=== PATIENT | male | born 1945 | race Caucasian/White ===

== ENCOUNTER → 2016-05-13 | Outpatient (CLI) | payer OTHER ==
[~2016-05-13] MED LIST: ASPEC81 PO; CALC500C70 PO; IMD/2 PO; OMEG10007 PO; PRLSR20 PO; SIMV20TA2 PO
--- NOTE | 2016-05-13 11:14 | DIAGNOSTIC IMAGING REPORT ---
(BARIUM SWALLOW) ESOPHAGUS CLINICAL HISTORY: Hiatal hernia, reflux symptomatology. COMPARISON STUDY: None FLUOROSCOPY TIME: 48 seconds. FINDINGS: The patient swallowed effervescent granules and barium without difficulty. Swallowing mechanics appear normal. No aspiration was visualized. No esophageal masses or ulcerations were identified. There is a moderate sliding hiatal hernia. There was gastroesophageal reflux. The patient was administered 1/2 inch barium tablet. This freely passed into the stomach. IMPRESSION: Moderate sliding hiatal hernia. Gastroesophageal reflux. Electronically signed by: Damien Collier M.D. 05/13/2016 11:13 AM Dictated Date/Time: 05/13/2016 11:11 AM
== END | disposition home or self-care (01) ==
LOC: C.RAD 10:10
PROVIDERS: ATTEND Nurse Practitioner Family
DX: Z01.818 Encounter for other preprocedural examination (principal); K21.9 Gastro-esophageal reflux disease without esophagitis; K44.9 Diaphragmatic hernia without obstruction or gangrene

== ENCOUNTER → 2016-05-30 | Outpatient (CLI) | payer OTHER | END | disposition home or self-care (01) | LOC: C.LABPVFM 10:05 | PROVIDERS: ATTEND Urology | DX: N40.1 Benign prostatic hyperplasia with lower urinary tract symptoms (principal) ==

== ENCOUNTER → 2016-09-23 | Outpatient (CLI) | payer OTHER ==
[2016-09-23 13:35] LABS: BASO % 0.7 %; BASO ABS # 0.04 K/uL (0-0.2); COMPLETE YES; HEMATOCRIT 45.2 % (42-52); IG% 0.5 %; LYMPH % 36.1 %; MEAN CELL VOLUME 92.6 fL (80-100); MEAN CORPUSCULAR HEMOGLOBIN 31.1 pg (25-34); MEAN CORPUSCULAR HGB CONC 33.6 g/dl (32-36); MONO % 11.2 %; NEUT % 47.5 %; PLATELET COUNT 268 K/uL (130-400); RED BLOOD COUNT 4.88 M/uL (4.7-6.1); WHITE BLOOD COUNT 5.81 K/uL (4.8-10.8)
[2016-09-23 13:47] LABS: ALT/SGPT 34 U/L (12-78); BLOOD UREA NITROGEN 19 mg/dl (7-18); BUN/CREATININE RATIO 16.2 (10-20); CARBON DIOXIDE 24 mmol/L (21-32); CHLORIDE 107 mmol/L (98-107); CHOLESTEROL 165 mg/dl (0-200); GLUCOSE 99 mg/dl (70-99); POTASSIUM 4.6 mmol/L (3.5-5.1); SODIUM 141 mmol/L (136-145); TRIGLYCERIDES 138 mg/dl (0-150); VERY LOW DENSITY LIPOPROT CALC 28 mg/dl
[2016-09-23 13:50] LABS: ALB/GLOB RATIO 1.1 (0.9-2); ALKALINE PHOSPHATASE 60 U/L (45-117); AST/SGOT 20 U/L (15-37); CHOLESTEROL/HDL RATIO 3.3; HDL CHOLESTEROL 50 mg/dl; LDL CHOLESTEROL CALCULATED 87 mg/dl
[2016-09-23 14:50] LABS: CALCIUM 8.9 mg/dl (8.5-10.1)
== END | disposition home or self-care (01) ==
LOC: C.LABPVFM 08:19
PROVIDERS: ATTEND Family Medicine
DX: E78.5 Hyperlipidemia, unspecified (principal); R06.09 Other forms of dyspnea; K22.2 Esophageal obstruction; D64.9 Anemia, unspecified

== ENCOUNTER → 2016-10-15 | Outpatient (CLI) | payer OTHER | END | disposition home or self-care (01) | LOC: C.LABPVFM 11:39 | PROVIDERS: ATTEND Nurse Practitioner Family | DX: J02.9 Acute pharyngitis, unspecified (principal) ==

== ENCOUNTER → 2017-04-03 | Outpatient (CLI) | payer OTHER ==
[2017-04-03 13:13] LABS: ALT/SGPT 44 U/L (12-78); BLOOD UREA NITROGEN 17 mg/dl (7-18); BUN/CREATININE RATIO 14.1 (10-20); CALCIUM 8.5 mg/dl (8.5-10.1); CARBON DIOXIDE 26 mmol/L (21-32); CHLORIDE 106 mmol/L (98-107); CHOLESTEROL 162 mg/dl (0-200); GLUCOSE 101 mg/dl (70-99); POTASSIUM 4.3 mmol/L (3.5-5.1); SODIUM 137 mmol/L (136-145)
[2017-04-03 13:16] LABS: ALB/GLOB RATIO 1.3 (0.9-2); ALKALINE PHOSPHATASE 57 U/L (45-117); AST/SGOT 26 U/L (15-37); CHOLESTEROL/HDL RATIO 3.3; HDL CHOLESTEROL 49 mg/dl; LDL CHOLESTEROL CALCULATED 71 mg/dl; TRIGLYCERIDES 211 mg/dl (0-150); VERY LOW DENSITY LIPOPROT CALC 42 mg/dl
== END | disposition home or self-care (01) ==
LOC: C.LABPVFM 07:44
PROVIDERS: ATTEND Family Medicine
DX: E78.5 Hyperlipidemia, unspecified (principal); M19.90 Unspecified osteoarthritis, unspecified site; D64.9 Anemia, unspecified; N40.1 Benign prostatic hyperplasia with lower urinary tract symptoms; Z85.828 Personal history of other malignant neoplasm of skin

== ENCOUNTER → 2017-07-04 | Outpatient (CLI) | payer OTHER | END | disposition home or self-care (01) | LOC: C.LAB1850 10:16 | PROVIDERS: ATTEND Urology | DX: N40.1 Benign prostatic hyperplasia with lower urinary tract symptoms (principal) ==

== ENCOUNTER 2019-10-29 10:22 | Observation (INO) ==
--- NOTE | 2019-10-03 14:38 | PAT Medication Instructions ---
Medication Instructions Date of Service October 03, 2019 Home Medications Medication Instructions Recorded tamsulosin 0.4 mg capsule 0.4 mg PO HS #90 cap 04/22/19 cholecalciferol (vitamin D3) 25 mcg (1,000 unit) capsule 1,000 - 2,000 units PO QAM loperamide 2 mg tablet 1 mg PO BID meloxicam 15 mg tablet 15 mg PO DIRECTED PRN omega 9-lnv-lvu-fish oil 1,000 mg (120 mg-180 mg) capsule 1 cap PO QAM tamsulosin 0.4 mg capsule 0.4 mg PO HS simvastatin 10 mg PO PM methylcellulose (laxative) 500 mg tablet 500 mg PO BID aspirin [Aspir-81] 81 mg PO QAM calcium carbonate [Calcium 600] 1,200 mg PO DAILY ibuprofen 400 mg PO UD PRN naproxen sodium [Aleve] 220 mg PO UD PRN ASK your surgeon for instructions meloxicam 15 mg tablet 15 mg PO DIRECTED PRN ibuprofen 400 mg PO UD PRN STOP taking 2 weeks before surgery (or as soon as possible if surgery is within 2 weeks) omega 8-fhe-tno-fish oil 1,000 mg (120 mg-180 mg) capsule 1 cap PO QAM DO NOT take the morning of surgery cholecalciferol (vitamin D3) 25 mcg (1,000 unit) capsule 1,000 - 2,000 units PO QAM loperamide 2 mg tablet 1 mg PO BID methylcellulose (laxative) 500 mg tablet 500 mg PO BID calcium carbonate [Calcium 600] 1,200 mg PO DAILY Take evening before surgery loperamide 2 mg tablet 1 mg PO BID tamsulosin 0.4 mg capsule 0.4 mg PO HS simvastatin 10 mg PO PM methylcellulose (laxative) 500 mg tablet 500 mg PO BID Other Notes If you have any questions please call us at [phone] or [phone] or [phone] or [phone]
--- NOTE | 2019-10-08 09:17 | Anesthesiology Consultation ---
Date of Service October 08, 2019 Assessment & Plan (1) Encounter for pre-operative examination: Per PAT assessment on 10/07: Travel screen- Lives in [facility]. Travel to [facility] for grocery shopping/doctor appts. Wears mask in public. No known COVID-19 positive contacts. No current COVID-19 related symptoms. No hx of COVID-19 testing. Patient scheduled for preop COVID testing (at [place]) on 10/23. Awaiting results. Chart Review Chart Review: Acceptable Risk for Surgery (pending COVID testing) and Patient seen in Pre Admission Testing Teaching & Discussion Pre-Anesthesia Teaching/Discussion Notes: Instructed NPO after midnight before surgery,except medications with 15 cc of water. Medication instructions provided according to the PAT guidelines. History Surgery Operation Date: 10/29/19 07:00 Proposed Procedures p Left Total Knee Arthroplasty - Paddy Sim MD Height/Weight Height: 5 ft 9 in Weight: 72.1 kg Allergies Allergy/AdvReac Type Severity Reaction Status Date / Time BANDAIDS Allergy Unknown ? RASH Uncoded 10/06/19 15:20 Medications Home Medications Medication Instructions Recorded Confirmed Last Taken cholecalciferol (vitamin D3) 25 1,000 - 2,000 units PO QAM cap 10/12/1809/05/19 mcg (1,000 unit) capsule loperamide 2 mg tablet 1 mg PO BID tab 10/12/18 10/01/19 09/05/19 meloxicam 15 mg tablet 15 mg PO DIRECTED PRN #30 tab 10/12/18 10/01/19 Unknown omega 3-bim-vbg-fish oil 1,000 mg 1 cap PO QAM 10/12/18 10/01/19 09/05/19 (120 mg-180 mg) capsule tamsulosin 0.4 mg capsule 0.4 mg PO HS #90 cap 04/22/19 10/01/19 09/05/19 simvastatin 10 mg PO PM 09/06/19 10/01/19 09/05/19 methylcellulose (laxative) 500 mg 500 mg PO BID 09/30/19 10/01/19 Unknown tablet aspirin [Aspir-81] 81 mg PO QAM 10/01/19 10/01/19 Unknown calcium carbonate [Calcium 600] 1,200 mg PO DAILY 10/01/19 10/01/19 Unknown ibuprofen 400 mg PO UD PRN 10/01/19 10/01/19 Unknown naproxen sodium [Aleve] 220 mg PO UD PRN 10/01/19 10/01/19 Unknown Past Medical History Medical History 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[facility] 08/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- dx anaplasmosis, tx with doxy, no current symptoms Borderline high cholesterol Degenerative arthritis of knee, bilateral Enlarged prostate History of hiatal hernia History of squamous cell carcinoma of skin (Resolved) s/p excision IBS (irritable bowel syndrome) Exercise / Class Metabolic Activity II 4-5 Yardwork/Stairs/Walk up hill Past Family History Family History Mother Breast cancer Hypertension Father Diabetes Denies family history of Ovarian cancer Prostate cancer Myocardial infarction Colorectal cancer Past Surgical History Surgical History History of arthroscopy of right knee History of colonoscopy History of hemorrhoidectomy History of hernia repair History of repair of hiatal hernia History of tooth extraction ALL TEETH REMOVED Past Anesthesia History No Hx of Anesthesia Complications and No Family Hx of Anesthesia Complications History of PONV No Hx of PONV and No Hx of Motion Sickness Social History Smoking Status: Never smoker Do You Dip or Chew Tobacco: No Hx Alcohol Use: Yes Alcohol type: beer, wine and hard liquor alcohol intake frequency: a few times a week Hx Substance Use: No substance use type: does not use Review of Systems Patient denies chest pain, shortness of breath, dyspnea on exertion, fever, chills, cough, wheezing, palpitations. Physical Exam Vital Signs VITALS BP 135/75 P 63 TEMP 98.7 SP02 98%RA RESP 18 PHYSICAL Full neck and c-spine range of motion. Full TMJ range of motion. TMD 3 finger breaths Mallampati Score 3 Dentition: full dentures upper/lower Lungs: clear throughout to auscultation Cardiac: regular rate and rhythm, no murmurs noted Spine: normal Carotid arteries: negative bruit Extremities: no edema Testing Laboratory Results 10/08/19 09:40 PT 10.1 Seconds (9.0-12.0) 10/08/19 09:40 INR 1.0 (0.9-1.1) 10/08/19 09:40 APTT 26.2 Seconds (21.0-31.0) 10/08/19 09:40 Blood Type A Positive 10/08/19 09:40 Antibody Screen NEGATIVE 10/08/19 09:40 09/06/19 SODIUM 135 POTASSIUM 3.8 CHLORIDE 100 CO2 24 BUN 22 CREATININE 1.35 GLUCOSE 100 Electrocardiogram Date: 09/06/19 NSR with sinus arrhythmia at 81bpm. NS STA. Chest X-Ray Date: 09/06/19 Atherosclerosis of the aortic arch. Cardiac silhouette enlarged. No focal opacity. No large effusion or pneumothorax. Osseous structures normal. Upper abdomen normal. IMPRESSION: No acute cardiopulmonary disease.
[2019-10-08 11:15] LABS: Hematocrit (blood only) 42.6 % (42-52); Hemoglobin 14.3 g/dL (14.0-18.0); Mean Corpuscular Hemoglobin 31.1 pg (25-34); Mean Corpuscular Hgb Conc 33.6 g/dL (32-36); Mean Corpuscular Volume 92.6 fL (80-100); Mean Platelet Volume 9.4 fL (7.4-10.4); Platelet Count 204 K/uL (130-400); RDW Coefficient of Variation 13.4 % (11.5-14.5); RDW Standard Deviation 45.2 fL (36.4-46.3); White Blood Count 7.46 K/uL (4.8-10.8)
[2019-10-08 11:26] LABS: Partial Thromboplastin Ratio 0.9; Partial Thromboplastin Time 26.2 Seconds (21.0-31.0); Prothrombin Time 10.1 Seconds (9.0-12.0)
[2019-10-08 12:06] LABS: Basophils # (auto) 0.03 K/uL (0-0.2); Basophils % (auto) 0.4 %; Eosinophils # (auto) 0.13 K/uL (0-0.5); Eosinophils % (auto) 1.7 %; Immature Granulocytes # (auto) 0.02 K/uL (0.00-0.02); Immature Granulocytes % (auto) 0.3 %; Lymphocytes # (auto) 3.86 K/uL (1.2-3.4); Lymphocytes % (auto) 51.7 %; Monocytes # (auto) 0.71 K/uL (0.11-0.59); Monocytes % (auto) 9.5 %; Neutrophils # (auto) 2.71 K/uL (1.4-6.5); Neutrophils % (auto) 36.4 %; RBC Morphology Unremarkable
[~2019-10-29 10:22] MED LIST changes: +ACETAMINOPHEN 500 MG TAB PO SCH; -ASPEC81 PO; +BUPIVACAINE 0.25% 30 ML VIAL ONE; +BUPIVACAINE 0.5 % 5 MG/1 ML PF 10ML VIAL ONE; +BUPIVACAINE LIPOSOME/PF 266 MG, BUPIVACAINE/EPINEPHRINE 50 ML, SODIUM CHLORIDE 0.9% 30 ... INFIL SCH; -CALC500C70 PO; +CEFAZOLIN 2000MG 2,000 MG/15 ML SYR IV SCH; +FAMOTIDINE 20 MG TAB PO SCH; +GABAPENTIN 300 MG CAP PO SCH; -IMD/2 PO; +LR 500ML BOLUS, THEN 15ML/HR IV SCH; +LR 60ML/HR IV SCH; +METOCLOPRAMIDE HCL 10 MG TABLET PO SCH; -OMEG10007 PO; -PRLSR20 PO; -SIMV20TA2 PO; +TRANEXAMIC ACID 1,000 MG **IV Intra-op IV SCH
--- NOTE | 2019-10-29 10:43 | History & Physical Bridge Note ---
Date of Service October 29, 2019 History & Physical Bridge Note I have examined the patient, reviewed the History & Physical and in the interval since the performance of the History & Physical I have noted the following changes of clinical significance: no changes noted
[2019-10-29] MEDS ORDERED: PROPOFOL IV EMULSION 10 MG/ML 20 ML VIAL IV ONE (11:35)
[2019-10-29] MEDS ORDERED: fentaNYL citrate 100 MCG/2 ML VIAL ONE (11:36)
[2019-10-29] MEDS ORDERED: MIDAZOLAM HCL 1 MG/ML 2ML VIAL ONE (11:36)
[2019-10-29] MEDS ORDERED: ATROPINE SULFATE 0.1 MG/ML 10ML SYR IV PRN (12:06)
[2019-10-29] MEDS ORDERED: HYDROmorphone INJ 1 MG/ML SYRINGE IV PRN (12:06)
[2019-10-29] MEDS ORDERED: fentaNYL citrate 100 MCG/2 ML VIAL IV PRN (12:06)
[2019-10-29] MEDS ORDERED: ONDANSETRON INJ 2 MG/ML 2 ML VIAL IV PRN ×2 (12:06→17:30)
[2019-10-29] MEDS ORDERED: ePHEDrine sulfate 50 MG/ML AMP IV PRN (12:06)
[2019-10-29] MEDS ORDERED: BUPIVACAINE/EPINEPHRINE 0.25% 1:200,000 30 ML VIAL ONE (13:05)
[2019-10-29] MEDS ORDERED: BUPIVACAINE LIPOSOME 1.3% 266 MG/20 ML VIAL ONE (13:05)
[2019-10-29] MEDS ORDERED: BACITRACIN INJ 50,000 UNIT VIAL ONE (13:05)
[2019-10-29] MEDS ORDERED: SODIUM CHLORIDE 0.9% PF 50 ML VIAL ONE (13:05)
--- NOTE | 2019-10-29 15:15 | Post Operative Brief Note ---
PG Immediate Post Op with CF Date of Surgery October 29, 2019 Pre & Post Diagnosis Operation Date: 10/29/19 12:30 Pre-Op Diagnosis: Left Knee Advanced Degenerative Joint Disease Post-Op Diagnosis: Left Knee Advanced Degenerative Joint Disease I identified the patient and participated in the time-out.: Yes Procedure Operation Date: 10/29/19 12:30 Actual Procedures p Left Total Knee Arthroplasty(Left) - Paddy Sim MD Surgeon Paddy Sim MD Impersonator Character Flaca, PAC Estimated Blood Loss 50 Findings Consistent with Post-Op Diagnosis Fluids 2000 cc Specimens Specimen Description: Permanent specimen: A. Left knee bone and tissue Drains Goldsmith Catheter Anesthesia Type Spinal MAC Complications none Disposition Accompanied Patient To Recovery: No Disposition: Recovery Room
--- NOTE | 2019-10-29 15:59 | XRay Report ---
XR knee LT 1 or 2V routine CLINICAL HISTORY: Surgical Post Op COMPARISON: None. DISCUSSION: Anatomic alignment post total left knee arthroplasty. Could contact between prosthetic an d underlying bone. Expected soft tissue postoperative change IMPRESSION: Anatomic alignment post total left knee arthroplasty. ACT 112: Negative or not required by law. The above report was generated using voice recognition software. It may contain grammatical, syntax or spelling errors. Electronically signed by: Chay Mercer M.D. 10/29/2019 3:58 PM
--- NOTE | 2019-10-29 16:45 | Anesthesiology Progress Note ---
Date of Service October 29, 2019 Anesthesia Post Procedure Vital Signs Vital Signs: Temp Pulse Pulse Resp BP BP Pulse Ox 10/29/19 16:35 48 L 12 146/76 H 98 10/29/19 16:25 47 L 12 144/71 H 100 10/29/19 16:15 44 L 12 149/74 H 98 10/29/19 16:05 46 L 13 153/77 H 100 10/29/19 15:55 43 L 15 147/73 H 96 10/29/19 15:45 53 L 15 148/82 H 100 10/29/19 15:35 51 L 17 139/73 97 10/29/19 15:25 49 L 12 130/61 98 10/29/19 15:19 36.0 C L 55 L 17 129/74 99 10/29/19 11:42 36.7 C 54 L 20 145/70 H 99 10/29/19 11:04 36.4 C L 65 20 150/85 H 98 Pain Intensity Left Knee: Pain Intensity: 0 Transfer of Care Handoff Completed per policy Notes Mental Status: alert / awake / arousable Patient Amnestic to Procedure: Yes Nausea / Vomiting: adequately controlled Pain: adequately controlled Airway Patency, RR, SpO2: stable & adequate BP & HR: stable & adequate Hydration State: stable & adequate Anesthetic Complications: no major complications apparent
--- NOTE | 2019-10-29 17:28 | Operative Report ---
Post Operative Report Pre & Post Diagnosis Operation Date: 10/29/19 12:30 Pre-Op Diagnosis: Left Knee Advanced Degenerative Joint Disease Post-Op Diagnosis: Left Knee Advanced Degenerative Joint Disease I identified the patient and participated in the time-out.: Yes Procedure Operation Date: 10/29/19 12:30 Actual Procedures p Left Total Knee Arthroplasty(Left) - Paddy Sim MD Surgeon Paddy Sim MD Agriculture Scientist Flaca, PAC Estimated Blood Loss 50 Findings Consistent with Post-Op Diagnosis Operative findings revealed advanced left knee DJD. He had extensive grade 4 [id number] eburnation changes medial femoral condyle medial tibial plateau. He had a fixed varus deformity to his knee which was not correctable. Moderate- sized joint effusion. Fluids 2000 cc. Specimens Left knee sent for pathology. Drains None. Anesthesia Type Spinal MAC Complications none Disposition Accompanied Patient To Recovery: No Disposition: Recovery Room Indications Patient is 74-year-old gentleman is had a long history of bilateral knee pain discomfort. I have treatments conservatively over the years which became less successful as time went on. X-rays show advanced bilateral knee DJD. He elected proceed with surgical treatment. Description of Procedure Operative implants consisted of: 1. Biomet Vanguard size 65 left posterior stabilized femoral component. 2. Biomet size 75 tibial tray. 3. 10 mm posterior box polyethylene insert. 4. 31 x 8 all poly-patella. Operative procedure: Patient was taken to the operating room and identified and placed on the operating table supine position. All contact areas were properly padded. IV antibiotics arrived by anesthesia team. A Goldsmith catheter was placed in sterile fashion. A left thigh turn was then placed in the left lower extremity was then prepped and draped in usual sterile fashion. The left leg was elevated and exsanguinated with use of an Esmarch and the tourniquet was placed at 300 mmHg. An anterior approach left knee was then performed to longitudinal incision centered over the patella. Sharp dissection was got through subcutaneous tissue down to level the extensor mechanism. A medial parapatellar arthrotomy incision was made. Some subperiosteal dissection was carried out medially. The fat pad was resected from each patella tendon. Lateral patellofemoral ligament was released. Patella was subluxated laterally and the knee was flexed. The osteophytes were taken off the distal femur. The ACL and PCL were then released from the distal femur the tibia subluxate anteriorly. The external tibial alignment jig was then placed in the interface the tibia and adjusted 14 mm medially. Proximal tibial cut was made to be flush with the most efficient aspect of the posterior medial tibial plateau. He had pretty severe wear it posteriorly. Some osteophytes were taken off medial and posterior medially. Tibia sized to a size 75. Attention drawn the femur. The femur was entered with a sharp drop with intramedullary canal was suction. A left 6 degree valgus cutting guide was placed but distal femoral cutting block was pinned in place. Distal femoral cut was made to take an additional 3 mm bone off distal femur. The femur was then sized to a size 65. We did downsize a slightly. The AP cutting block was pinned parallel to the epicondylar axis which was 4 degrees of external rotation. The anterior cut, anterior chamfer, posterior cut, posterior chamfer cuts were made. Box cutting guide was placed in just slight lateral box cut was made. The knee was flexed. The remnants of the medial lateral menisci were excised. The osteophytes were taken off the posterior aspect the femur. A trial femoral component was placed but the tibial tray was pinned in maximum external rotation and drill and stem punch we used to create the defect in the proximal tip for the tibial tray. The knee was then trialed the 10 mm insert fit most appropriately. Attention drawn the patella. Patella was cleaned of all soft tissues. Patella thickness measured 21 mm and was cut down to 12. Sized to a size 31 patella. Locals were drilled for 31 patella. Lateral osteophyte was removed. Patella button was placed. Knee was taken through range of motion and the patella tracked nicely with no thumbs test. Attention drawn to place the permanent components. All trial components were removed. Bone plug was placed in the disc femur limit blood loss put a double batch Pal[place]os G cement was mixed. Biomet Vanguard size 65 left posterior by femoral component, size 75 tibial tray, 10 mm posterior box polyethylene insert, and a 31 x 8 all poly-patella were then cemented in place. Knee was brought out into full extension of cement hardened. Final cement check was then performed. The pericapsular tissues were injected with total 100 cc of combination of 20 cc of Exparel, 30 cc normal saline, 50 cc of quarter percent Marcaine with epinephrine. Patient did receive 1 g tranexamic acid per the tourniquet was let down. Hemostasis assured use electrocautery. Total tourniquet time was 63 minutes. The wound was then once again irrigated. The extensor neck was then closed with combination 1 PDS suture #1 Vicryl suture in a [id number] fashion. The extensor mechanism checked found to be intact the subcutaneous tissue then closed with 2 Dexon suture in a buried interrupted fashion skin was closed skin nick. Leg was then cleaned dried a sterile dressing composed Xeroform, 4 x 4's, sterile cast padding, Adair bandage were applied. Patient transferred to the recovery room in stable condition. Patient tolerated the procedure well no complications. I attest to the content of the Intraoperative Record and any orders documented therein. Any exceptions are noted below.
[2019-10-29] MEDS ORDERED: OXYCODONE HCL IR 5 MG TAB (IMMEDIATE RELEASE) PO PRN (17:30)
[2019-10-29] MEDS ORDERED: METOCLOPRAMIDE HCL INJ 5 MG/ML 2 ML VIAL IV PRN (17:30)
[2019-10-29] MEDS ORDERED: ALUMINUM/MAGNESIUM SUSP 30 ML UDC PO PRN (17:30)
[2019-10-29] MEDS ORDERED: bisacodyL 10 MG SUPP PR PRN (17:30)
[2019-10-29] MEDS ORDERED: MAGNESIUM HYDROXIDE SUSP 30 ML UDC PO PRN (17:30)
[2019-10-29] MEDS ORDERED: HYDROmorphone INJ 0.5 MG/0.5 ML SYR IV PRN (17:30)
[2019-10-29] MEDS ORDERED: NALOXONE HCL 0.4 MG/1 ML VIAL/CARP IV PRN (17:30)
[2019-10-29] MEDS ORDERED: TAMSULOSIN HCL 0.4 MG CAP PO PRN (17:30)
--- NOTE | 2019-10-29 17:54 | Progress Notes ---
DATE: 10/29/2019 SUBJECTIVE: A 74-year-old gentleman postop from a left knee replacement. He is doing pretty well. Legs are still numb. No chest pain or shortness of breath. Not feeling dizzy or lightheaded. Does not have any pain yet. OBJECTIVE: VITAL SIGNS: Temperature 36.3. Vital signs stable. GENERAL: Shows a pleasant elderly male. He is sitting up in bed, looks comfortable. LUNGS: Clear to auscultation. HEART: Has regular rate and rhythm. ABDOMEN: Soft, nontender, nondistended. EXTREMITIES: Grossly neurovascularly intact except as follows: Examination of the left leg reveals the leg to be well aligned. Dressing is clean, dry, and intact. He has no significant sensation or motor function in his leg yet. He has got brisk refill with good distal pulse. X-RAYS: X-rays of the left knee from recovery room are reviewed. It shows a left cemented posterior stabilized total knee arthroplasty. Components looked to be in good position. No signs of problems. ASSESSMENT: A 74-year-old gentleman postoperative from a left knee replacement. His pain is controlled. His block is still in effect. He is neurologically stable but lacks sensory/motor function due to the spinal. He has got a good pulse. PLAN: 1. DVT prophylaxis including thigh-high TEDs, SCDs, and aspirin twice a day. 2. PT/OT. Weight bear as tolerated. Left total knee protocol. 3. Pain control, doing well with current pain regimen. We will obviously have to adjust his medicines as his spinal wears off. 4. IV antibiotics x24 hours. 5. Disposition: Plan to discharge to home. He is open to do outpatient therapy upon discharge.
[2019-10-29] MEDS: ASCORBIC ACID 500 MG TAB PO SCH (19:48)
[2019-10-29] MEDS: FERROUS GLUCONATE 324 MG TAB PO SCH (19:49)
[2019-10-29] MEDS: SODIUM CHLORIDE 0.9% 1000ML 1,000 ML IV SCH (19:54)
[2019-10-29] MEDS: KETOROLAC TROMETHAMINE 15 MG/ML VIAL IV SCH (19:54)
[2019-10-29] MEDS ORDERED: TRANEXAMIC ACID / 0.7% NACL 1,000 MG/100 ML BAG IV SCH (21:19)
[2019-10-29] MEDS: ACETAMINOPHEN 500 MG TAB PO SCH (22:06)
[2019-10-29] MEDS: TAPENTADOL HCL ER 50 MG TABCR PO SCH (22:06)
[2019-10-29] MEDS: ASPIRIN 81 MG ECTAB PO SCH (22:07)
[2019-10-29] MEDS: SIMVASTATIN 10 MG TAB PO SCH (22:07)
[2019-10-29] MEDS: TAMSULOSIN HCL 0.4 MG CAP PO SCH (22:07)
[2019-10-29] MEDS: DOCUSATE SODIUM 100 MG CAP PO SCH (22:07)
[2019-10-29] MEDS: SENNA 8.6 MG TAB PO SCH (22:07)
[2019-10-29] MEDS: CEFAZOLIN 1000MG 1,000 MG/7.5 ML SYR IV SCH (22:08)
[2019-10-29] MEDS: LOPERAMIDE PO SCH (22:24)
[2019-10-29] MEDS: CITRUCEL PO SCH (22:24)
[2019-10-30] MEDS: KETOROLAC TROMETHAMINE 15 MG/ML VIAL IV SCH ×5 (00:25→23:53)
[2019-10-30] MEDS: SODIUM CHLORIDE 0.9% 1000ML 1,000 ML IV SCH (04:36)
[2019-10-30] MEDS: ACETAMINOPHEN 500 MG TAB PO SCH ×3 (05:43→21:57)
[2019-10-30] MEDS: CEFAZOLIN 1000MG 1,000 MG/7.5 ML SYR IV SCH (05:50)
[2019-10-30 07:05] LABS: Hematocrit (blood only) 35.8 % (42-52); Hemoglobin 12.1 g/dL (14.0-18.0); Mean Corpuscular Hemoglobin 30.9 pg (25-34); Mean Corpuscular Hgb Conc 33.8 g/dL (32-36); Mean Corpuscular Volume 91.6 fL (80-100); Mean Platelet Volume 8.9 fL (7.4-10.4); Platelet Count 158 K/uL (130-400); RDW Coefficient of Variation 13.3 % (11.5-14.5); Red Blood Count 3.91 M/uL (4.7-6.1); White Blood Count 8.27 K/uL (4.8-10.8)
[2019-10-30 07:41] LABS: BUN Creatinine Ratio 14.4 (10-20); Calcium 8.1 mg/dl (8.5-10.1); Creatinine Clr Calc Pharmacy 54.3 ml/min; Est GFR (Non-African American) 60.4; Potassium 3.8 mmol/L (3.5-5.1)
[2019-10-30] MEDS: FERROUS GLUCONATE 324 MG TAB PO SCH ×2 (08:33→17:44)
[2019-10-30] MEDS: ASPIRIN 81 MG ECTAB PO SCH ×2 (08:33→21:56)
[2019-10-30] MEDS: OMEGA-3 (PURIFIED FISH OIL) 1 GM CAP PO SCH (08:33)
[2019-10-30] MEDS: MULTIVITAMIN TAB PO SCH (08:33)
[2019-10-30] MEDS: LOPERAMIDE PO SCH ×2 (08:34→21:56)
[2019-10-30] MEDS: DOCUSATE SODIUM 100 MG CAP PO SCH ×2 (08:34→21:56)
[2019-10-30] MEDS: CALCIUM CARBONATE 1250MG TAB PO SCH (08:34)
[2019-10-30] MEDS: ASCORBIC ACID 500 MG TAB PO SCH ×2 (08:34→17:44)
[2019-10-30] MEDS: CITRUCEL PO SCH ×2 (08:34→21:56)
[2019-10-30] MEDS: TAPENTADOL HCL ER 50 MG TABCR PO SCH ×2 (08:37→21:57)
--- NOTE | 2019-10-30 18:03 | Progress Notes ---
DATE: 10/30/2019 SUBJECTIVE: A 74-year-old gentleman postop day 1 from a left knee replacement. He has got the feeling back in his legs. Therapy went pretty well this morning. Denies any chest pain or shortness of breath. Moderate amount of knee pain. Not feeling dizzy or lightheaded. OBJECTIVE: VITAL SIGNS: Temperature 36.9. Vital signs are stable. GENERAL: Shows a pleasant, middle-aged male. He is sitting up in bed and talking to his . EXTREMITIES: Examination of the left leg reveals the leg to be well aligned. Dressing is clean, dry, and intact. He can dorsiflex and plantarflex his foot appropriately. LABORATORY DATA: Hemoglobin 12.1. Hematocrit 35.8. Electrolytes are stable. ASSESSMENT: A 74-year-old gentleman postoperative day 1 from a left knee replacement, doing pretty well. Pain is controlled. He is neurologically intact. He is quite concerned about his bowels and he did have a bowel movement this morning. PLAN: 1. DVT prophylaxis including thigh-high TEDs, SCDs, and aspirin twice a day. 2. PT/OT. Weight bear as tolerated. Left total knee protocol. 3. Pain control, doing pretty well with current pain regimen. 4. Disposition: He is going to be discharged to home. He is going to do outpatient therapy locally.
[2019-10-30] MEDS: TAMSULOSIN HCL 0.4 MG CAP PO SCH (21:56)
[2019-10-30] MEDS: SIMVASTATIN 10 MG TAB PO SCH (21:57)
[2019-10-30] MEDS: SENNA 8.6 MG TAB PO SCH (21:57)
[2019-10-31] MEDS: ACETAMINOPHEN 500 MG TAB PO SCH (06:03)
[2019-10-31] MEDS: KETOROLAC TROMETHAMINE 15 MG/ML VIAL IV SCH (06:05)
[2019-10-31] MEDS: LOPERAMIDE PO SCH (07:34)
--- NOTE | 2019-10-31 07:53 | Progress Notes ---
DATE: 10/31/2019 SUBJECTIVE: A 74-year-old gentleman postop day 2 from a left knee replacement. He is doing pretty well. A little frustrated that he can lift his leg well. Pain has been controlled. No chest pain or shortness of breath. Not feeling dizzy or lightheaded. OBJECTIVE: VITAL SIGNS: Temperature 37.0. Vital signs stable. GENERAL: Shows a pleasant, middle-aged male. He is lying in bed, looks comfortable. EXTREMITIES: Examination of the left leg reveals the leg to be well aligned. Dressing is clean, dry, and intact. Calf is soft and supple. He is neurologically intact. ASSESSMENT: A 74-year-old gentleman postop day 2 from left knee replacement, doing well. Pain is controlled. It is normal not to be able to lift his leg on his own quite yet. PLAN: 1. DVT prophylaxis including thigh-high TEDs, SCDs, and aspirin twice a day. 2. PT/OT. Weight bear as tolerated. Left total knee protocol. 3. Pain control, doing well with current pain regimen. 4. Disposition: Plan to discharge to home later today. He is going to do outpatient therapy.
[2019-10-31] MEDS: TAPENTADOL HCL ER 50 MG TABCR PO SCH (08:33)
[2019-10-31] MEDS: FERROUS GLUCONATE 324 MG TAB PO SCH (08:34)
[2019-10-31] MEDS: CALCIUM CARBONATE 1250MG TAB PO SCH (08:34)
[2019-10-31] MEDS: ASCORBIC ACID 500 MG TAB PO SCH (08:34)
[2019-10-31] MEDS: DOCUSATE SODIUM 100 MG CAP PO SCH (08:34)
[2019-10-31] MEDS: ASPIRIN 81 MG ECTAB PO SCH (08:34)
[2019-10-31] MEDS: OMEGA-3 (PURIFIED FISH OIL) 1 GM CAP PO SCH (08:34)
[2019-10-31] MEDS: CITRUCEL PO SCH (08:34)
[2019-10-31] MEDS: MULTIVITAMIN TAB PO SCH (08:34)
--- NOTE | 2019-11-05 06:35 | Discharge Summary ---
Date of Service November 05, 2019 Admission HPI Per Admitting Provider Documented in the H&P Admission Exam (Per Admitting) Constitutional Documented in the H&P Discharge Data Consultations 10/29/19 17:30 Consult Case Management - Discharge Planning Routine Procedures Performed Operation Date: 10/29/19 12:30 Actual Procedures p Left Total Knee Arthroplasty(Left) - Paddy Sim MD Hospital Course (1) Status post total left knee replacement: 74-year-old male admitted on 10/29/2019 underwent total knee replacement. He tolerated the procedure well and there were no complications. He was transferred to the PACU postoperatively and later to the orthopedic floor for further care. He was given Ancef for antibiotic prophylaxis. He was given PEARL stockings, SCDs, and aspirin for DVT prophylaxis. His hemoglobin, hematocrit, and vital signs were monitored during his hospital stay and remained stable. He did not require blood transfusions. There were no complications. By postoperative day 2 he was tolerating a regular diet, pain was controlled with oral pain medicine, and he was participating in physical therapy. On postop day 2 he was discharged home. He was given printed discharge instructions as well as new prescriptions for extra strength Tylenol, aspirin, and oxycodone. Continue physical therapy, weightbearing as tolerated. Continue PEARL stockings. Follow-up approximately 2 weeks postop or sooner if there are any problems or concerns. Coding Level of Care Code None Diagnoses Status post total left knee replacement Z96.652
== END 2019-10-31 11:38 | disposition home or self-care (01) ==
LOC: 3E 10:22 → ASU 10:22
DX: M17.12 Unilateral primary osteoarthritis, left knee; Z82.49 Family history of ischemic heart disease and other diseases of the circulatory system; Z83.3 Family history of diabetes mellitus; Z80.3 Family history of malignant neoplasm of breast; Z79.899 Other long term (current) drug therapy; Z79.82 Long term (current) use of aspirin